=== PATIENT | female | born 2005 | race African-American/Black ===

== ENCOUNTER 2023-05-12 06:28 | Inpatient (IN) ==
[2023-05-12] MEDS ORDERED: REGLAN INJ 10 MG VIAL IVP PRN ×2 (06:57→23:23)
[2023-05-12] MEDS ORDERED: MAALOX or MYLANTA PO PRN (06:57)
[2023-05-12] MEDS ORDERED: STADOL INJ IVP PRN (06:57)
[2023-05-12] MEDS ORDERED: LR 1,000 ML IV 1,000 ML IV ONE ×3 (06:57→21:59)
[2023-05-12] MEDS ORDERED: TYLENOL 325 MG TAB PO PRN (06:57)
[2023-05-12] MEDS ORDERED: ZOFRAN INJ 4 MG VIAL IVP PRN ×2 (06:57→23:23)
[2023-05-12] MEDS ORDERED: PITOCIN IVP ONE (06:57)
[2023-05-12] MEDS ORDERED: D5 LR + PITOCIN 10 UNITS/L 10 UNITS/1,000 ML BAG IV PRN (06:57)
[2023-05-12] MEDS: D5 1/2 NS 1,000 ML 1,000 ML IV SCH (07:00)
[2023-05-12] MEDS ORDERED: PITOCIN ONE (07:04)
[2023-05-12] MEDS ORDERED: D5 LR + PITOCIN 10 UNITS/L 10 UNITS/1,000 ML BAG IV ONE ×2 (07:05→18:01)
[2023-05-12] MEDS ORDERED: D5 1/2 NS 1,000 mL + PITOCIN 20 UNITS/L IV 20 UNITS/1,000 ML BAG IV ONE (07:05)
[2023-05-12 07:34] LABS: BASOPHILS % (AUTO) 0.3 % (0.2-1.0); EOSINOPHILS # (AUTO) 0.1 x10^3/uL (0.0-0.2); EOSINOPHILS % (AUTO) 1.1 % (0.9-2.9); HEMATOCRIT 30.9 % (36.0-47.0); HEMOGLOBIN 10.8 g/dL (12.0-16.0); LYMPHOCYTES % (AUTO) 34.1 % (21.0-51.0); MEAN CORPUSCULAR HGB CONC 35.1 g/dL (33.0-35.0); MEAN PLATELET VOLUME 6.9 fL (7.4-11.0); MONOCYTES # (AUTO) 0.4 x10^3/uL (0.3-0.8); MONOCYTES % (AUTO) 7.1 % (0.0-13.0); NEUTROPHILS # (AUTO) 3.3 x10^3/uL (2.2-4.8); NEUTROPHILS % (AUTO) 57.4 % (42.0-75.0); PLATELET COUNT 269 X10^3/uL (150.0-450.0); RED BLOOD COUNT 4.01 X10^6/uL (3.5-5.4); RED CELL DISTRIBUTION WIDTH 15.9 % (11.6-16.5); WHITE BLOOD COUNT 5.8 X10^3/uL (3.6-10.0)
[2023-05-12 07:45] LABS: BLOOD UREA NITROGEN 14 mg/dL (7-18); CALCIUM 8.2 mg/dL (8.5-10.1); CARBON DIOXIDE 21.9 mmol/L (21-32); CHLORIDE 103 mmol/L (98-107); CREATININE 0.59 mg/dL (0.55-1.02); GLUCOSE 105 mg/dL (65-99); POTASSIUM 3.5 mmol/L (3.5-5.1); SODIUM 135 mmol/L (136-145); eGFR NON BLACK RACES > 60 (>60)
[2023-05-12] MEDS ORDERED: STADOL INJ ONE ×2 (15:01→18:15)
[2023-05-12] MEDS ORDERED: ZEMURON 100 MG VIAL ONE (21:54)
[2023-05-12] MEDS ORDERED: BRIDION ONE (21:54)
[2023-05-12] MEDS ORDERED: PEPCID 20 MG VIAL ONE (21:54)
[2023-05-12] MEDS ORDERED: REGLAN INJ 10 MG VIAL ONE (21:54)
[2023-05-12] MEDS ORDERED: DIPRIVAN VIAL 20 ML ONE (21:54)
[2023-05-12] MEDS ORDERED: ZOFRAN INJ 4 MG VIAL ONE (21:54)
[2023-05-12] MEDS ORDERED: VERSED ONE (21:55)
[2023-05-12] MEDS ORDERED: FENTANYL VIAL INJ 250 mcg ONE (21:55)
[2023-05-12] MEDS ORDERED: SUPRANE ONE ×2 (22:08→22:16)
[2023-05-12] MEDS ORDERED: ANCEF VIAL 1 GRAM ONE (22:13)
[2023-05-12] MEDS ORDERED: NS 100 ML IV 100 ML ONE (22:13)
[2023-05-12] MEDS ORDERED: NEO-SYNEPHRINE INJ ONE (22:44)
[2023-05-12] MEDS ORDERED: NS 1,000 ML IV 1,000 ML ONE (23:10)
[2023-05-12] MEDS ORDERED: MORPHINE SULFATE INJ 4 MG IM PRN (23:13)
[2023-05-12] MEDS ORDERED: DILAUDID INJ IVP PRN (23:23)
[2023-05-12] MEDS ORDERED: BENADRYL INJ 50 MG VIAL IVP PRN (23:23)
[2023-05-12] MEDS ORDERED: BARHEMSYS INJ IVP PRN (23:23)
[2023-05-13] MEDS: NORCO 10/325 TAB PO PRN ×2 (04:14→21:44)
[2023-05-13 05:10] LABS: HEMATOCRIT 24.3 % (36.0-47.0)
[2023-05-13 05:15] LABS: HEMOGLOBIN 8.4 g/dL (12.0-16.0)
[2023-05-13 06:09] LABS: BILIRUBIN,URINE NEGATIVE (NEGATIVE); BLOOD/HEMOGLOBIN,URINE 4+ (NEGATIVE); GLUCOSE, URINE NEGATIVE (NEGATIVE); KETONES,URINE NEGATIVE (NEGATIVE); LEUKOCYTE ESTERASE ,URINE 1+ (NEGATIVE); NITRITES,URINE NEGATIVE (NEGATIVE); PROTEIN,URINE 1+ (NEGATIVE); UROBILINOGEN,URINE NORMAL (NORMAL)
[2023-05-13 06:32] LABS: APPEARANCE,URINE HAZY (CLEAR); BACTERIA,URINE TRACE /HPF (NEGATIVE); COLOR,URINE YELLOW (YELLOW); RBC,URINE 20-30 /HPF (0-3); SQUAMOUS EPITHELIAL CELL,UR RARE /HPF (NEGATIVE)
[2023-05-13] MEDS: TORADOL 30 MG VIAL IVP PRN ×2 (08:29→14:14)
[2023-05-13] MEDS ORDERED: NS 100 ML IV 100 ML with VENOFER 400 MG IV NR ×2 (09:03)
[2023-05-13] MEDS: LR 1,000 ML IV 1,000 ML IV SCH (15:13)
[2023-05-13] MEDS: D5 1/2 NS 1,000 ML 1,000 ML IV SCH (19:00)
[2023-05-14] MEDS: LR 1,000 ML IV 1,000 ML IV SCH ×3 (02:24→14:45)
[2023-05-14] MEDS ORDERED: NS 100 ML IV 100 ML with VENOFER 400 MG IV NR ×2 (07:00)
[2023-05-14] MEDS: NORCO 10/325 TAB PO PRN (07:42)
[2023-05-15] MEDS: LR 1,000 ML IV 1,000 ML IV SCH (01:28)
[2023-05-15 04:09] VITALS: RESP 18
[2023-05-15 08:51] VITALS: BP 99/71; PULSE 65; TEMP 98; O2SAT 98
== END 2023-05-15 11:25 | disposition home or self-care (01) | DRG 788 ==
LOC: LD 06:28 → MED/SURG 05-13 00:19
PROVIDERS: ADMIT Obstetrics & Gynecology Obstetrics; ATTEND Obstetrics & Gynecology Obstetrics
DX: O65.8 Obstructed labor due to other maternal pelvic abnormalities; Z37.0 Single live birth; O62.0 Primary inadequate contractions; O62.1 Secondary uterine inertia; Z3A.39 39 weeks gestation of pregnancy